=== PATIENT | female | born 1955 | race Caucasian/White ===

== ENCOUNTER 2018-02-12 16:39 | Emergency (ER) | payer OTHER ==
[2018-02-12 16:45] VITALS: BP 147/70
[2018-02-12] MEDS ORDERED: Tetan/Diph/Pertus SYR(Tdap)* 0.5 ML SYR(BOOSTRIX) use SYR IM ONE (16:46)
--- NOTE | 2018-02-12 16:46 | UC ---
Laceration HPI - HPI Summary HPI Summary: 62 yo female presents with left hand laceration. 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 Small superficial laceration, but she is on blood thinners and the area has been bleeding since. Unsure date of last tetanus, but thinks it was recent given that she has had a lot of procedures/ surgeries recently. - History Of Current Complaint Stated Complaint: LAC ON RT HAND Time Seen by Provider: 02/12/18 16:45 Hx Obtained From: Patient Laceration Location: Hand Mechanism Of Injury: Sharp Trauma Onset/Duration: Sudden Onset Severity: Mild Pain Intensity: 2 Pain Scale Used: 0-10 Numeric - Allergies/Home Medications Allergies/Adverse Reactions: Allergies Allergy/AdvReac Type Severity Reaction Status Date / Time latex Allergy Rash Verified 02/12/18 16:47 Home Medications: Home Medications Aspirin EC TAB* [Ecotrin EC Low Dose 81 MG*] 1 tab DAILY 02/12/18 [History Confirmed 02/12/18] PMH/Surg Hx/FS Hx/Imm Hx Endocrine History: Dyslipidemia Cardiovascular History: Cardiac Disease, Hypertension - Surgical History Surgical History: Yes Surgery Procedure, Year, and Place: LEFT SUB CLAVIAN STENT , CLEANED OUT xS 3, LEFT CAROTIDENDARECTOMY. UTESRINE SUSPENSION, THREE ECTOPIC PREGNANCIES. - Family History Known Family History: Positive: Cardiac Disease, Hypertension - Social History Occupation: Retired Lives: With Family Alcohol Use: None Substance Use Type: None Smoking Status (MU): Former Smoker Type: Cigarettes When Did the Patient Quit Smoking/Using Tobacco: 15 YRS AGO - Immunization History Most Recent Tetanus Shot: unsure Review of Systems All Other Systems Reviewed And Are Negative: Yes Constitutional: Positive: Negative Skin: Positive: Other - Laceration right hand Respiratory: Positive: Negative Cardiovascular: Positive: Negative Neurovascular: Positive: Negative Musculoskeletal: Positive: Negative Neurological: Positive: Negative Psychological: Positive: Negative Physical Exam - Summary Physical Exam Summary: GENERAL: NAD. WDWN. No pain distress. SKIN: LEFT HAND: Web space between 3rd and 4th digit with 2mm linear laceration superficial. Approximated at rest. Actively bleeding. CHEST: No accessory muscle use. Breathing comfortably and in no distress. CV: Pulses intact. Cap refill <2seconds NEURO: Alert. PSYCH: Age appropriate behavior. Triage Information Reviewed: Yes Vital Signs: Initial Vital Signs Temp 98.4 F 02/12/18 16:42 Pulse 108 02/12/18 16:42 Resp 18 02/12/18 16:42 BP 147/70 02/12/18 16:42 Pulse Ox 97 02/12/18 16:42 Vital Signs Reviewed: Yes Laceration Repair - Laceration Repair 1 Description: Linear Laceration Size After Repair: Length (cm) - 0.2 Modified For Repair: No Cleansing Completed Via Routine Prep: Yes Closure Material: Skin Adhesive Laceration Course/Dx - Course/Dx Course Of Treatment: Right hand laceration. Area was cleansed with NS. Pt's hand was elevated vertically and pressure was applied to the area for ~ 20minutes - bleeding stopped. Dermabond was applied. Area bandaged with a band- aid. - Diagnosis Provider Diagnosis: Laceration of right hand Discharge - Sign-Out/Discharge Documenting (check all that apply): Patient Departure All imaging exams completed and their final reports reviewed: No Studies - Discharge Plan Condition: Stable Disposition: HOME Patient Education Materials: Laceration (DC) Referrals: Ligia Houser MD [Primary Care Provider] - Additional Instructions: If you develop a fever, shortness of breath, chest pain, new or worsening symptoms - please call your PCP or go to the ED. Your blood pressure was high at todays visit. Please see your primary provider within 4 weeks for recheck and re-evaluation. 1) Keep the area bandaged with a band-aid until well healed - Billing Disposition and Condition Condition: STABLE Disposition: Home
== END 2018-02-12 17:32 | disposition home or self-care (01) ==
LOC: UCCORT 16:39
DX: S61.412A Laceration without foreign body of left hand, initial encounter (principal); W45.8XXA Other foreign body or object entering through skin, initial encounter; Y93.D1 Activity, knitting and crocheting; Y92.009 Unspecified place in unspecified non-institutional (private) residence as the place of occurrence of the external cause; Z79.01 Long term (current) use of anticoagulants; I10 Essential (primary) hypertension; Z87.891 Personal history of nicotine dependence
CPT/HCPCS: 99212; G0463

== ENCOUNTER 2018-05-27 11:17 | Emergency (ER) | payer MEDICARE, MEDICAID ==
[2018-05-27 11:54] VITALS: BP 110/65
[2018-05-27] MEDS ORDERED: Albuterol/Ipratropium NEB.SOL* Albuterol 2.5 MG/Ipratropium 0.5 MG 3 ML INH ONE (13:02)
--- NOTE | 2018-05-27 13:18 | UC ---
Respiratory Complaint HPI - HPI Summary HPI Summary: 63-year-old female presents with 5 day history of productive cough for yellow sputum, shortness of breath, and fatigue. Reports 4 days ago she had one episode of a fever of 101 F. Having some lower thoracic back pain with deep inspiration. States she and pneumonia about a month ago and was treated with a Z -Murphy with improvement in her symptoms. States she feels a lot like she did when she had the pneumonia. States she was supposed to see her primary care provider 3 days ago for her symptoms but had an episode of vertigo and was unable to drive herself to the appointment. States she has an albuterol inhaler that was given to her but she had her previous episode of pneumonia which she has been using. He also reports some difficulty urinating this morning. Denies nasal congestion, runny nose, sore throat, chest pain, palpitations, abdominal pain, nausea, vomiting, diarrhea, dysuria, frequency, urgency, hematuria, or vaginal discharge. - History of Current Complaint Chief Complaint: UCRespiratory Stated Complaint: COUGH,CONGESTION Time Seen by Provider: 05/27/18 12:49 Hx Obtained From: Patient Pain Intensity: 0 - Allergies/Home Medications Allergies/Adverse Reactions: Allergies Allergy/AdvReac Type Severity Reaction Status Date / Time latex Allergy Rash Verified 05/27/18 11:49 PMH/Surg Hx/FS Hx/Imm Hx - Additional Past Medical History Additional PMH: Vertigo Endocrine History: Dyslipidemia Cardiovascular History: Cardiac Disease Respiratory History: Other - TRUDI - Surgical History Surgical History: Yes Surgery Procedure, Year, and Place: LEFT SUB CLAVIAN STENT , CLEANED OUT xS 3, LEFT CAROTIDENDARECTOMY. UTESRINE SUSPENSION, THREE ECTOPIC PREGNANCIES. - Family History Known Family History: Positive: Cardiac Disease, Hypertension - Social History Occupation: Unemployed Lives: With Family Alcohol Use: None Substance Use Type: None Smoking Status (MU): Former Smoker Type: Cigarettes When Did the Patient Quit Smoking/Using Tobacco: ~2002 - Immunization History Most Recent Tetanus Shot: unsure Review of Systems All Other Systems Reviewed And Are Negative: Yes Constitutional: Positive: Fever, Fatigue Skin: Negative: Rash Eyes: Negative: Drainage, Eye Redness ENT: Negative: Sore Throat, Ear Ache, Nasal Discharge, Sinus Congestion, Sinus Pain/Tenderness Respiratory: Positive: Shortness Of Breath, Cough Cardiovascular: Negative: Palpitations, Chest Pain Gastrointestinal: Negative: Abdominal Pain, Vomiting, Diarrhea, Nausea Genitourinary: Positive: Other - Difficulty urinating. Negative: Dysuria, Hematuria, Frequency, Urgency, Vaginal/Penile Discharge Musculoskeletal: Positive: Negative Neurological: Positive: Negative Is Patient Immunocompromised?: No Physical Exam - Summary Physical Exam Summary: GENERAL APPEARANCE: Well developed, obese, alert and cooperative, and appears to be in no acute distress. EYES: Conjunctiva clear. No drainage. Vision is grossly intact. EARS: External auditory canals and tympanic membranes clear, hearing grossly intact. NOSE: No nasal discharge. THROAT: Pharynx normal No tonsilar inflammation, swelling, exudate, or lesions. Uvula midline. NECK: Neck supple, non-tender without lymphadenopathy. CARDIAC: Normal S1 and S2. No S3, S4 or murmurs. Rhythm is regular. There is no peripheral edema, cyanosis or pallor. Extremities are warm and well perfused. Capillary refill is less than 2 seconds. Peripheral pulses intact. LUNGS: Bilateral diffuse wheezing. ABDOMEN: Positive bowel sounds. Soft, nondistended, nontender. No guarding or rebound. No masses or hepatosplenomegally. No CVA tenderness. MUSKULOSKELETAL: ROM intact to all extremities. No joint erythema or tenderness. Normal muscular development. Normal gait. SKIN: Skin normal color, texture and turgor with no lesions or eruptions. Triage Information Reviewed: Yes Vital Signs: Initial Vital Signs Temp 97.8 F 05/27/18 11:46 Pulse 66 05/27/18 11:46 Resp 18 05/27/18 11:46 BP 110/65 05/27/18 11:46 Pulse Ox 100 05/27/18 11:46 Vital Signs Reviewed: Yes Diagnostics - Radiology No standard instances Radiology Interpretation Completed By: Radiologist Summary of Radiographic Findings: Order Information: CHEST PA LAT 2 VWS. Accession Number: [id number]. CPT: 78855. HISTORY: cough, SOB. COMPARISONS: None relevant available at the time of dictation. VIEWS: 4: Frontal dual- energy and lateral views of the chest. FINDINGS: CARDIOMEDIASTINAL SILHOUETTE : The cardiomediastinal silhouette is normal. MARGIE: The margie are normal. PLEURA: The costophrenic angles are sharp. No pleural abnormalities are noted. LUNG PARENCHYMA: There is hyperinflation with flattening of the diaphragm and expansion of the AP diameter of the chest. ABDOMEN: The upper abdomen is clear. There is no subphrenic gas. BONES AND SOFT TISSUES: Degenerative changes are noted along the spine. OTHER: None. IMPRESSION: HYPERINFLATION, CONSISTENT WITH COPD. NO ACTIVE CARDIOPULMONARY DISEASE. Respiratory Course/Dx - Course Course Of Treatment: 63-year-old female presents with 5 day history of productive cough for yellow sputum, shortness of breath, and fatigue. Reports 4 days ago she had one episode of a fever of 101 F. Having some lower thoracic back pain with deep inspiration. States she and pneumonia about a month ago and was treated with a Z -Murphy with improvement in her symptoms. States she feels a lot like she did when she had the pneumonia. States she was supposed to see her primary care provider 3 days ago for her symptoms but had an episode of vertigo and was unable to drive herself to the appointment. States she has an albuterol inhaler that was given to her but she had her previous episode of pneumonia which she has been using. He also reports some difficulty urinating this morning. Denies nasal congestion, runny nose, sore throat, chest pain, palpitations, abdominal pain, nausea, vomiting, diarrhea, dysuria, frequency, urgency, hematuria, or vaginal discharge. - Differential Dx/Diagnosis Differential Diagnosis/HQI/PQRI: Bronchitis, Influenza, Lower Resp Infection, Other - RAD Provider Diagnosis: Acute bronchitis, Reactive airway disease that is not asthma Discharge - Sign-Out/Discharge Documenting (check all that apply): Patient Departure All imaging exams completed and their final reports reviewed: Yes - Discharge Plan Condition: Stable Disposition: HOME Prescriptions: Azithromyxin MURPHY (NF) [Z-Murphy (Zithromax) 250 mg tabs #6] 2 tab PO .TODAY, THEN 1 DAILY #6 tab predniSONE TAB* [Deltasone TAB*] 50 mg PO DAILY #5 tab Patient Education Materials: Acute Bronchitis (ED), Wheezing (ED) Referrals: Ligia Houser MD [Primary Care Provider] - 3 Days (For recheck of symptoms.) Additional Instructions: Your chest x-ray in the clinic today showed no evidence of pneumonia. I suspect your symptoms are from acute bronchitis with some reactive airway disease ( inflammation of the airways) which is causing your wheezing. Take azithromycin 2 tabs today then 1 tab a day for next 4 days. Start prednisone 50 mg daily for 5 days. Use your albuterol inhaler 2 puffs every 4-6 hours as needed for shortness of breath, wheezing, or coughing fits. Get plenty of rest. Drink plenty of fluids. Run a cool mist humidifer in your room at night. Take over the counter acetaminophen (Tylenol) or ibuprofen (Advil, Motrin) according to directions as needed for pain or fever. Follow up with your primary care provider in 3 days for recheck of your symptoms. Seek immediate medical attention in the emergency room if you have fever greater than 100.5 F despite taking acetaminophen or ibuprofen, have chest pain , difficulty breathing, or have any worsening of symptoms. - Billing Disposition and Condition Condition: STABLE Disposition: Home - Attestation Statements Provider Attestation: Per institutional requirements, I have reviewed the chart, however, I was not consulted specifically or made aware of this patient by the midlevel provider. I did not personally evaluate, interact with , or disposition this patient.
== END 2018-05-27 13:59 | disposition home or self-care (01) ==
LOC: UCCORT 11:17
DX: J20.9 Acute bronchitis, unspecified (principal); J98.8 Other specified respiratory disorders; Z91.040 Latex allergy status; Z87.891 Personal history of nicotine dependence
CPT/HCPCS: 71046; 81003; 87086; 99212; A9270-GY; G0463

== ENCOUNTER 2019-01-12 09:41 | Emergency (ER) | payer MEDICARE, MEDICAID ==
--- NOTE | 2019-01-12 10:21 | ED ---
Dizziness - HPI Summary HPI Summary: This patient is a 63 year old F presenting to ED with a chief complaint of intermittent dizziness described as room-spinning since 01/07/19. Patient woke up 3AM on 01/07/19 with dizziness and nausea after rolling over in her bed. 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 Patient was referred to her vascular surgeon. After seeing her vascular physician in [place] for the aneurysm, her physician there thinks the dizziness is unrelated to the aneurysm. Patient has previously had episodes of vertigo, so she was given more vertigo medication, but it did not help and her dizziness has continued. Usually when the patient gets vertigo, the pills help, but not now. This morning, she had increased dizziness. The patient rates the pain 2/10 in severity. Symptoms aggravated by position change (leaning back, bending over). Symptoms alleviated by nothing. Patient reports nausea, tiredness, mild ringing in the ears, headaches. Patient also reports right shoulder soreness, which is chronic. - History Of Current Complaint Chief Complaint: EDDizziness Stated Complaint: DIZZY Time Seen by Provider: 01/12/19 10:11 Hx Obtained From: Patient Onset/Duration: Still Present, Suddenly - Woke patient up at 3AM on 01/07/19 Timing: Intermittent Episode Lasting Severity Initially: Moderate Severity Currently: Moderate Character: Room Spinning, Dizzy Aggravating Factor(s): Position Change Alleviating Factor(s): Nothing Associated Signs And Symptoms: Positive: Nausea, Other: - Ringing in the ears, headache, tiredness - Allergies/Home Medications Allergies/Adverse Reactions: Allergies Allergy/AdvReac Type Severity Reaction Status Date / Time latex Allergy Rash Verified 05/27/18 11:49 PMH/Surg Hx/FS Hx/Imm Hx Cardiovascular History: Reports: Hx Hypertension Neurological History: Reports: Other Neuro Impairments/Disorders - Vertigo - Cancer History Hx Radiation Therapy: No - Surgical History Surgery Procedure, Year, and Place: LEFT SUB CLAVIAN STENT , CLEANED OUT xS 3, LEFT CAROTIDENDARECTOMY. UTESRINE SUSPENSION, THREE ECTOPIC PREGNANCIES. Infectious Disease History: No Infectious Disease History: Denies: Traveled Outside the [place] in Last 30 Days - Family History Known Family History: Positive: Cardiac Disease, Hypertension - Social History Alcohol Use: None Hx Substance Use: No Substance Use Type: Reports: None Hx Tobacco Use: Yes Smoking Status (MU): Former Smoker Type: Cigarettes Review of Systems ENT: Other - Ringing in ears Positive: Nausea Musculoskeletal: Other - Right shoulder soreness, chronic Neurological: Other - Dizziness, tiredness Positive: Headache All Other Systems Reviewed And Are Negative: Yes Physical Exam - Summary Physical Exam Summary: Appearance: The patient is well-nourished in no acute distress and in no acute pain. Skin: The skin is warm and dry, and skin color reflects adequate perfusion. HEENT: Non-fatiguing horizontal nystagmus in both directions Neck: The neck is supple with full range of motion and non-tender. There are no carotid bruits. There is no neck vein distension. Respiratory: Chest is non-tender. Lungs are clear to auscultation and breath sounds are symmetrical and equal. Cardiovascular: Heart is regular rate and rhythm. There is no murmur or rub auscultated. There is no peripheral edema and pulses are symmetrical and equal. Abdomen: The abdomen is soft and non-tender. There are normal bowel sounds heard in all four quadrants and there is no organomegaly palpated. Musculoskeletal: There is no back tenderness noted. Extremities are non-tender with full range of motion. There is good capillary refill. There is no peripheral edema or calf tenderness elicited. Neurological: Patient is alert and oriented to person, place and time. The patient has symmetrical motor strength in all four extremities. Cranial nerves are grossly intact. Deep tendon reflexes are symmetrical and equal in all four extremities. GCS: 15 Psychiatric: The patient has an appropriate affect and does not exhibit any anxiety or depression. Triage Information Reviewed: Yes Vital Signs On Initial Exam: Initial Vitals Temp Pulse Resp BP Pulse Ox 97.4 F 81 16 181/92 97 01/12/19 09:44 01/12/19 09:44 01/12/19 09:44 01/12/19 09:44 01/12/19 09:44 Vital Signs Reviewed: Yes - Naresh Coma Scale Best Eye Response: 4 - Spontaneous Best Motor Response: 6 - Obeys Commands Best Verbal Response: 5 - Oriented Coma Scale Total: 15 Procedures - Sedation Patient Received Moderate/Deep Sedation with Procedure: No Diagnostics - Vital Signs Vital Signs Temp Pulse Resp BP Pulse Ox 01/12/19 09:44 97.4 F 81 16 181/92 97 - Laboratory Lab Statement: Any lab studies that have been ordered have been reviewed, and results considered in the medical decision making process. - CT Brain CT Interpretation Completed By: Radiologist Summary of CT Findings: #. Negative for intracranial hemorrhage or other acute intracranial process. Negative exam. Dr. Laguerre has reviewed and interpreted this radiology report. Re-Evaluation - Re-Evaluation First Eval Re-Evaluation Time: 13:04 Comment: Called patient's physician in [place] who placed her stents, but they are unable to locate documentation of the procedure. Therefore, radiology states they are unable to perform the MRI. Will consult with Dr. Billy, neurologist. Second Eval Re-Evaluation Time: 14:14 Comment: Patient reports feeling mildly better. Discussed results with patient. Patient will be discharged home with dx of vertigo with plan to follow up with Dr. Billy on 01/14/19. Patient understands and agrees with this plan. Dizzy Course/Dx - Course Course Of Treatment: Ms. Siegel woke up at 3:30 in the morning on Monday feeling dizzy when she rolled over. She was able to get back to sleep and then when she arose at 5 AM she was very dizzy and fell to the ground. She went to [place] ED where it sounds like a CTA was performed. She reports that they said she had a small carotid aneurysm and sent her to see her vascular surgeon. She has had vascular stents in her subclavian and a carotid endarterectomy in the past. The vascular surgeon said that was not the cause of her symptoms and recommended neurology follow-up. She has been given meclizine 3 times a day during the interim and this is not helped. She had one episode of spinning vertigo years ago that was worse than this and responded well to meclizine. She complained of some mild nausea and a waxing and waning course where sometimes she felt completely fine. She had some mild horizontal nystagmus and otherwise her exam was unremarkable as were her vitals. I spoke with Dr. Billy and we agreed to get an MRI scan just to make sure that there was no posterior event although this sounds like a peripheral vertigo. Unfortunately we do not know what kind of stents she hasn't were unable to obtain that information after several hours of researching. I will add a small dose of benzodiazepine for her symptoms and she will be following up first of the week with Dr. Billy. - Diagnoses Provider Diagnoses: Vertigo - Provider Notifications Discussed Care Of Patient With: Luis Billy Time Discussed With Above Provider: 10:31 Instructed by Provider To: Other - Discussed patient case with Dr. Billy, neurologist, who agreed with getting an MRI. At 1037, discussed patient case with Dr. Warren, radiologist, who also agreed with MRI. At 1308, discussed patient case with Dr. Billy, neurologist. We had previously called the patient's physician in [place] who placed her stents, but they are unable to locate documentation of the procedure. Therefore, radiology states they are unable to perform the MRI. Dr. Billy recommended a CT brain and the patient be discharged to follow-up with neurology as an out-patient. Discharge ED - Sign-Out/Discharge Documenting (check all that apply): Patient Departure - Discharge - Discharge Plan Condition: Stable Disposition: HOME Prescriptions: LORazepam TAB(*) [Ativan 0.5 MG TAB (*)] 0.5 mg PO Q6H PRN #20 tab MDD 4 PRN Reason: Vertigo Patient Education Materials: Vertigo (ED) Referrals: Ligia Houser MD [Primary Care Provider] - 3 Days Luis Billy MD [Medical Doctor] - 2 Days Additional Instructions: Please follow-up with your primary care physician in 2-3 days. Follow-up with Dr. Billy on Monday. RETURN TO THE ER FOR WORSENING OR CHANGING SYMPTOMS. - Billing Disposition and Condition Condition: STABLE Disposition: Home - Attestation Statements Document Initiated by Quintin: Yes Documenting Scribe: Kiran Schroeder Provider For Whom Quintin is Documenting (Include Credential): Paramjit Laguerre MD Scribe Attestation: Kiran Valencia, scribed for Paramjit Laguerre MD on 01/12/19 at 1824. Scribe Documentation Reviewed: Yes Provider Attestation: The documentation as recorded by the Kiran maher accurately reflects the service I personally performed and the decisions made by me, Paramjit Laguerre MD Status of Scribe Document: Viewed
[2019-01-12 14:41] VITALS: BP 122/51
== END 2019-01-12 14:40 | disposition home or self-care (01) ==
LOC: ED 09:41
DX: R42 Dizziness and giddiness (principal); R11.0 Nausea; R53.83 Other fatigue; H93.13 Tinnitus, bilateral; R51 Headache; G89.29 Other chronic pain; M25.511 Pain in right shoulder; I10 Essential (primary) hypertension; Z91.040 Latex allergy status; Z87.891 Personal history of nicotine dependence
CPT/HCPCS: 70450; 99283